=== PATIENT | female | born 1980 | race Caucasian/White ===

== ENCOUNTER 2021-12-07 11:51 | Emergency (ER) | payer OTHER, SELFPAY ==
[2021-12-07 12:02] VITALS: BP 109/82; PULSE 82; RESP 16; TEMP 37.6; O2SAT 100
--- NOTE | 2021-12-07 12:09 | ED.URI ---
HPI - URI/Sore Throat General Chief Complaint: Upper Respiratory Infection Stated Complaint: Congestion/Cough Source: patient Mode of arrival: ambulatory Limitations: no limitations History of Present Illness HPI Narrative: 41-year-old female presented for complaint of lingering cough for about 3 weeks. She denies any associated shortness of breath, wheezing, dizziness, fatigue, chest pain, nausea, vomiting, diarrhea, fever or chills. She has been taking Mucinex. She is vaccinated for Covid. MD elicited complaint: cough and sore throat Related Data Allergies Allergy/AdvReac Type Severity Reaction Status Date / Time No Known Allergies Allergy Verified 12/07/21 12:30 Review of Systems Review of Systems: CONSTITUTIONAL: Denies malaise, chills, sweats, or fever. EYES: Denies visual changes, redness, or discharge. ENT: Endorses rhinorrhea, congestion, Denies: sinus pain, otalgia and sore throat. CARDIOVASCULAR: Denies chest pain, palpitations, or edema. RESPIRATORY: Reports cough. Denies dyspnea. GASTROINTESTINAL: Denies abdominal pain, nausea, vomiting, diarrhea SKIN: Denies rash or itching. MUSCULOSKELETAL: Denies myalgia. NEUROLOGIC: Denies headache. All systems reviewed & are unremarkable except as noted in HPI and below PMFSH Comments At time of signature, agree with nursing past medical, surgical, social and family history. There is no relevant family history pertinent to the presenting complaint Exam Narrative: GENERAL: Well-appearing, well-nourished, and in no acute distress. HEAD: Normocephalic EYES: PERRLA, conjunctivae clear ENT:Mucous membranes moist. TM pearly saunders with dull light reflex bilaterally; no tragal tenderness. Oropharynx erythematous without lesions. Tonsils enlarged and without exudate, no drooling, no hoarseness, no trismus, uvula midline. NECK: Supple. No lymphadenopathy CHEST: Clear to auscultation, breath sounds equal. No wheezing, rhonchi, rales, or stridor. No respiratory distress, speaks in full sentences. HEART: Regular rate and rhythm. No murmur heard. SKIN: Warm, dry, no rash. NEURO: Alert and oriented x3. PSYCH: Normal mood and affect Course Course Emergency Course: Patient is aware of diagnosis, understands and agrees to treatment plan. Anticipatory guidance given. Patient agrees to follow-up as directed and is aware of reasons to seek care at the emergency department. Portions of this record may have been created with voice recognition software Level of Care: Express Care Visit Vital Signs Vital signs: Vital Signs Temperature 99.7 F H 12/07/21 12:02 Pulse Rate 82 12/07/21 12:02 Respiratory Rate 16 12/07/21 12:02 Blood Pressure 109/82 12/07/21 12:02 Pulse Oximetry 100 12/07/21 12:02 Temperature 99.7 F H 12/07/21 12:02 Pulse Rate 82 12/07/21 12:02 Respiratory Rate 16 12/07/21 12:02 Blood Pressure 109/82 12/07/21 12:02 Pulse Oximetry 100 12/07/21 12:02 Reviewed MDM - URI/Sore Throat MDM Narrative Medical decision making narrative: Differential diagnosis considered: Sapp virus, strep pharyngitis, allergic rhinitis, upper respiratory tract infection, sinusitis, rhinosinusitis, nasopharyngitis. viral pharyngitis, otitis media, otitis externa, pneumonia, bronchitis, viral cough syndrome, viral syndrome, and influenza. Exam findings show no acute concerns or changes; patient is non-toxic appearing and is in no distress. Patient is appropriate for outpatient treatment and follow-up. Discharge Plan Discharge Clinical Impression: Sinusitis Patient Disposition: Home, Self-Care Condition: Stable Instructions: Antibiotic Form, Sinusitis (ED) Additional Instructions: Start [id number] Zyrtec and Flonase daily. Prescription for Tesamarjit Joseph sent. Follow-up with your primary care provider in 2 weeks as needed. Prescriptions: New benzonatate 200 mg capsule 200 mg PO TID PRN (Reason: cough) Qty: 20 RF: 0 Follow-up/Referrals:
== END 2021-12-07 12:35 | disposition home or self-care (01) ==
PROVIDERS: Emergency Provider Nurse Practitioner Family
DX: J32.9 Chronic sinusitis, unspecified (principal)
CPT/HCPCS: 99213; G0463

== ENCOUNTER 2023-03-24 18:15 | Emergency (ER) | payer OTHER, SELFPAY ==
[2023-03-24 18:27] VITALS: BP 138/73; PULSE 92; RESP 16; TEMP 37.2; O2SAT 99
--- NOTE | 2023-03-24 19:31 | ED.BACK ---
HPI - Back Pain/Injury General Chief Complaint: Back Pain/Injury Stated Complaint: Low Back Pain Source: patient, family and RN notes reviewed History of Present Illness HPI Narrative: 42-year-old female presents to Urgent Care with complaints of right lower back pain for the last 2 weeks. Patient states the pain is becoming more constant. Patient states it might radiate to her right flank. Patient states that the pain was going down her right leg and had some tingling this past weekend but no longer does. Denies any dysuria, fevers, chills, vomiting, or abdominal pain. Patient took Tylenol with minimal relief. Some parts of this dictation were generated by voice recognition software and may contain typographical and/or grammatical inaccuracies. Related Data Allergies Allergy/AdvReac Type Severity Reaction Status Date / Time No Known Allergies Allergy Verified 12/07/21 12:30 Review of Systems Review of Systems: Pertinent positives and pertinent negatives per HPI. PMFSH Comments At the time of my signature, I reviewed and agree with the nursing past medical, surgical, social, and family history. There is no relevant family history pertinent to the patient complaint. Exam Narrative: GENERAL: This is a well-nourished, well-developed patient, in no apparent distress. HEAD: normocephalic, atraumatic. EYES: PERRL. Sclera clear/white. Vision is grossly intact. EARS: External ears normal, auditory canals clear and without drainage, TMs normal without perforation. Hearing grossly intact. NOSE: External nose normal with no obvious nasal discharge, nares without redness, no rhinorrhea. THROAT: Mucous membranes moist, posterior pharynx clear. NECK: Neck supple, non-tender without lymphadenopathy, masses or thyromegaly. CARDIOVASCULAR: Regular rate and rhythm without murmurs, gallops, or rubs. RESPIRATORY: Clear to auscultation. Breath sounds equal bilaterally. No wheezes, rales, or rhonchi. GASTROINTESTINAL: Abdomen soft, non-tender, nondistended. Bowel sounds are active. No hepato-splenomegaly, or palpable masses. No guarding. SKIN: warm, intact with no suspicious lesions or rash, good texture and turgor. NEURO: awake, alert, and oriented to person, place and time. There were no obvious focal neurologic abnormalities. EXTREMITIES: No clubbing, cyanosis, or edema. No joint tenderness, effusion, or edema noted. BACK: Nontender without deformity or crepitance. No flank tenderness. Course Course Level of Care: Express Care Visit Vital Signs Vital signs: Vital Signs Temperature 99 F 03/24/23 18:27 Pulse Rate 92 03/24/23 18:27 Respiratory Rate 16 03/24/23 18:27 Blood Pressure 138/73 03/24/23 18:27 Pulse Oximetry 99 03/24/23 18:27 Oxygen Delivery Room Air 03/24/23 18:27 Temperature 99 F 03/24/23 18:27 Pulse Rate 92 03/24/23 18:27 Respiratory Rate 16 03/24/23 18:27 Blood Pressure 138/73 03/24/23 18:27 Pulse Oximetry 99 03/24/23 18:27 Oxygen Delivery Room Air 03/24/23 18:27 Reviewed MDM - Back Pain/Injury MDM Narrative Medical decision making narrative: May take 600 mg of ibuprofen (Advil, Motrin, Aleve) along with a 1000 mg of Tylenol every 6 hours as needed for pain. Go to emergency department any new or worsening symptoms. Follow-up with primary care physician. Differential Diagnosis Differential diagnosis: Likely lumbar radiculopathy, pyelonephritis and other (A UTI) Lab Data Attestation: I reviewed the patient's lab results. Labs: Urine Glucose Negative Reference Range: Negative Urine Bilirubin Negative Reference Range: Negative Urine Ketone Negative Reference Range: Negative Urine Specific [place] 1.030 Reference Range:1.001-1.035
== END 2023-03-24 19:37 | disposition home or self-care (01) ==
PROVIDERS: Emergency Provider Nurse Practitioner Family
DX: M54.50 Low back pain, unspecified (principal); R31.9 Hematuria, unspecified
CPT/HCPCS: 81003; 99212; G0463

== ENCOUNTER 2023-08-18 13:15 | Emergency (ER) | payer OTHER, SELFPAY ==
[2023-08-18 13:18] VITALS: BP 143/74; PULSE 76; RESP 20; TEMP 37.1; O2SAT 100
--- NOTE | 2023-08-18 13:34 | ED.URI ---
HPI - URI/Sore Throat General Chief Complaint: Upper Respiratory Infection Stated Complaint: Cough Time Seen by Provider: 08/18/23 13:35 Source: patient, RN notes reviewed and old records reviewed Mode of arrival: ambulatory Limitations: no limitations History of Present Illness HPI Narrative: 42-year-old female who presents to [facility] with complaints of COVI 3.5 weeks ago with continued cough, raw nose, headache and some mid back pain. Patient reports that she can't get rid of cough despite use of OTC medications and Ibuprofen which she has been taking for discomfort.Patient denies any shortness of breath, no tachypnea noted SAO2 100% on room air MD elicited complaint: cough and other (raw nose headache and mid back pain) Pertinent past history: other (Covid 3.5 weeks ago) Onset (ago): week(s) (3.5) Description of mucous: clear Able to tolerate fluids by mouth: Yes Treatments prior to arrival: ibuprofen and cold medicine Related Data Allergies Allergy/AdvReac Type Severity Reaction Status Date / Time No Known Allergies Allergy Verified 08/18/23 13:34 Review of Systems Review of Systems: CONSTITUTIONAL: Denies malaise, chills, sweats, or fever. EYES: Denies visual changes, redness, or discharge. ENT: Reports rhinorrhea, congestion, no sinus pain, otalgia or sore throat. CARDIOVASCULAR: Denies chest pain, palpitations, or edema. RESPIRATORY: Reports cough.? Denies dyspnea. GASTROINTESTINAL: Denies abdominal pain, nausea, vomiting, diarrhea SKIN: Denies rash or itching. MUSCULOSKELETAL: Denies myalgia. states some back pain NEUROLOGIC:Reports headache. All systems reviewed & are unremarkable except as noted in HPI and below PMFSH Past Medical History Medical History (Updated 08/19/23 @ 11:51 by Ursula Terry NP) COVID-19 Surgical History Surgical History (Updated 08/19/23 @ 11:51 by Ursula Terry NP) Tubal ligation status Social History Social History (Updated 08/19/23 @ 11:52 by Ursula Terry NP) Smoking status: Never smoker Alcohol intake: current Alcohol use details: social Substance use type: does not use Living arrangements: with family Gender identity (if verbalized by the patient): Female Comments At time of signature, agree with nursing past medical, surgical, social and family history. There is no relevant family history pertinent to the presenting complaint Exam Narrative: GENERAL: Well-appearing, well-nourished, and in no acute distress. HEAD: Normocephalic EYES: PERRLA, conjunctivae clear ENT: Nares clear, turbinates edematous and erythematous, clear discharge. Mucous membranes moist. TM pearly saunders with dull light reflex bilaterally; no tragal tenderness. Oropharynx erythematous without lesions. Tonsils not enlarged and without exudate, no drooling, no hoarseness, no trismus, uvula midline.post nasal drainage noted NECK: Supple. No lymphadenopathy CHEST: Clear to auscultation, breath sounds equal. No wheezing, rhonchi, rales, or stridor. No respiratory distress, speaks in full sentences.cough dry hacky,SAO2 100% on room air HEART: Regular rate and rhythm. No murmur heard. SKIN: Warm, dry, no rash. NEURO: Alert and oriented x3. PSYCH: Normal mood and affect Course Course Emergency Course: Patient is aware of diagnosis, understands and agrees to treatment plan.? Anticipatory guidance given.? Patient agrees to follow-up as directed and is aware of reasons to seek care at the emergency department. Portions of this record may have been created with voice recognition software Level of Care: Express Care Visit Vital Signs Vital signs: Vital Signs Temperature 37.1 C 08/18/23 13:18 Pulse Rate 76 08/18/23 13:18 Respiratory Rate 20 08/18/23 13:18 Blood Pressure 143/74 H 08/18/23 13:18 Pulse Oximetry 100 08/18/23 13:18 Oxygen Delivery Room Air 08/18/23 13:18 Temperature 37.1 C 08/18/23 13:18 Pu
== END 2023-08-18 13:57 | disposition home or self-care (01) ==
PROVIDERS: Emergency Provider Registered Nurse
DX: R05.9 Cough, unspecified (principal); Z86.16 Personal history of COVID-19
CPT/HCPCS: 99213; G0463